=== PATIENT | male | born 1970 | race African-American/Black ===

== ENCOUNTER 2025-03-28 16:36 | Emergency (ER) | payer MEDICAID ==
[~2025-03-28] VITALS: Ht 182.9 cm; Wt 111.0 kg
[2025-03-28 16:40] VITALS: O2SAT 98
[2025-03-28] MEDS: ACETAMINOPHEN 325MG TABLET PO ONE (18:45)
[2025-03-28 19:15] VITALS: BP 180/99; PULSE 74; RESP 14; TEMP 37; O2SAT 98
== END 2025-03-28 19:13 | disposition home or self-care (01) ==
LOC: ER 16:36
DX: S09.90XA Unspecified injury of head, initial encounter (principal); I10 Essential (primary) hypertension; W22.03XA Walked into furniture, initial encounter; Y93.89 Activity, other specified; Y92.89 Other specified places as the place of occurrence of the external cause; Y99.8 Other external cause status
CPT/HCPCS: 99284